=== PATIENT | male | born 1940 | race Caucasian/White ===

== ENCOUNTER 2018-05-02 13:02 | Outpatient (RCR) | payer OTHER ==
[2018-05-02 14:12] VITALS: TEMP 97.5; BMI 27.9
[2018-05-25 09:45] VITALS: BP 128/56
== END 2018-05-27 23:59 ==
LOC: CAR.REHAB 13:02
PROVIDERS: ATTEND Internal Medicine Interventional Cardiology
DX: I21.4 Non-ST elevation (NSTEMI) myocardial infarction (principal)
CPT/HCPCS: 93798

== ENCOUNTER 2018-05-28 07:02 | Outpatient (RCR) ==
[2018-06-27 09:52] VITALS: BP 118/56
== END 2018-06-27 23:59 ==
LOC: CAR.REHAB 07:02
PROVIDERS: ATTEND Internal Medicine Interventional Cardiology
DX: I21.4 Non-ST elevation (NSTEMI) myocardial infarction (principal)
CPT/HCPCS: 93798